=== PATIENT | female | born 1980 | race Hispanic/Latino ===

== ENCOUNTER 2018-05-18 18:42 | Emergency (ER) | payer OTHER ==
[~2018-05-18 18:42] MED LIST: ALBUTEROL0.09 MG/A1 INH; MEDROL DOSEPAK1 PAC PO; ROBITUSSIN W/CO10 ML PO; TESSALON PERLE100 MG PO
[2018-05-18 19:10] VITALS: BP 115/74
--- NOTE | 2018-05-18 21:10 | ED SKIN/ALLERGY COMPLAINT ---
History of Present Illness General Chief Complaint: General Adult Stated Complaint: RASH ON PALMS OF HANDS Source: patient Exam Limitations: no limitations Vital Signs & Intake/Output Vital Signs & Intake/Output Vital Signs Date Time Temp Pulse Resp B/P B/P Pulse O2 O2 Flow FiO2 Mean Ox Delivery Rate 05/18 2148 90 18 100 Room Air 05/18 2147 Room Air ED Intake and Output 05/19 0000 05/18 1200 Intake Total 0 Output Total Balance 0 Intake, Oral 0 Allergies Coded Allergies: NO KNOWN ALLERGIES (10/14/15) Reconcile Medications Albuterol Sulfate (Albuterol Sulfate Hfa) 0.09 MG/Actuation AIDEN 2 PUFF INH Q4- 6 PRN PRN SHORTNESS OF BREATH 90 MCG PER PUFF Benzonatate (Tessalon Perle) 100 MG SGL 1 TAB PO TID COUGH Emollient Combination No.73 (Eucerin Intensive Repair) 78 GM CREAM..G. 1 Actuation TD TID dryness Methylprednisolone. (Medrol) 1 PAC PAC 1 PAC PO AD INFLAMMATION Robitussin AC (Guaifenesin-Codeine Syrup) 10 ML UDC 5 ML PO Q6 COUGH Triage Note: PT TO TRIAGE WITH PEELING RASH TO PALMS AND FEET. PER PT HAD GASTRIC SLEEVE DONE JANUARY 13, DEVELOPED RASH 3 WEEKS LATER ON ARMS, WENT AWAY WITH STEROID CREAM BUT HAS NOW SPREAD TO PALMS AND FEET AND CREAM IS NOT HELPING. Triage Nurses Notes Reviewed? yes Onset: Gradual Duration: day(s): Timing: recent history Severity: moderate Location: hands, feet : No Patient currently breastfeeds: No HPI: 37-year-old female presents emergency department complaining of rash to palms and feet for the past several days. Patient states that she had a rash under her arms and on upper arms several months ago for which she was prescribed antifungal cream. Patient states that that rash went away. She developed this rash on her hands which seemed different however she began applying the cream and rash got worse, now she has peeling skin and very dry skin. Rash initially started as small itchy red papules. Patient denies fevers, chills, sick contact , bug bite. (Anaid BUITRAGO,Yuridia Yuan) Past History Travel History Traveled to [place] past 21 day No Medical History Any Pertinent Medical History? see below for history Neurological: NONE EENT: NONE Cardiovascular: NONE Respiratory: NONE Gastrointestinal: NONE Hepatic: NONE Renal: NONE Musculoskeletal: NONE Psychiatric: NONE Endocrine: NONE Blood Disorders: GASTRIC SLEEVE GALL BLADDER REMOVAL Surgical History Surgical History: non-contributory Psychosocial History What is your primary language Kosovan Tobacco Use: Current Not Daily Daily Tobacco Use Amount/Type: =< 4 Cigarettes daily ETOH Use: occasional use Family History Hx Contributory? No (Yuridia Delgado) Review of Systems Review of Systems Constitutional: Reports: no symptoms. EENTM: Reports: no symptoms. Respiratory: Reports: no symptoms. Cardiovascular: Reports: no symptoms. GI: Reports: no symptoms. Genitourinary: Reports: no symptoms. Musculoskeletal: Reports: no symptoms. Skin: Reports: see HPI. Neurological/Psychological: Reports: no symptoms. Hematologic/Endocrine: Reports: no symptoms. Immunologic/Allergic: Reports: no symptoms. All Other Systems: Reviewed and Negative (Yuridia Delgado) Physical Exam Physical Exam General Appearance: well developed/nourished, no apparent distress, alert, awake Head: atraumatic, normal appearance Eyes: Bilateral: normal appearance. Ears, Nose, Throat: hearing grossly normal Neck: normal inspection, supple, full range of motion Respiratory: no respiratory distress Back: normal inspection, normal range of motion Extremities: normal range of motion Neurologic/Psych: awake, alert, oriented x 3 Skin: dryness with peeling and cracked skin to bilateral palms and heels, no erythema or swelling, no bleeding (Yuridia Delgado) Progress Differential Diagnosis: abscess/cellulitis, allergic reaction, contact dermatitis, drug reaction, urticaria Plan of Care: Patient has very dry skin to palms and heels. Dryness may have been exacerbated by application of Clotrimazole-Butamethasone cream the patient has been applying. Does not appear fungal in nature, this cream would not likely alleviate her symptoms. Patient given prescription for pneumonia to begin applying to dry skin areas and was given referral to a log loader helper. She is in no acute distress, nontoxic appearing, vital signs are stable. She agrees with this plan. (Yuridia Delgado) Departure Departure Disposition: HOME OR SELF CARE Condition: Stable Clinical Impression Primary Impression: Rash Secondary Impressions: Dry skin Referrals: Unknown (PCP/Family) Additional Instructions: Apply cream as directed. At this cream does not work he may purchase "O'Sukhjinder's working hands" cream from [employer] to try. Follow up with the log loader helper. Return if if worsening symptoms or concerns. Please note that there might be incidental findings in your evaluation that are unrelated to the current emergency department visit. Please notify your primary care doctor about this emergency department visit in order to obtain and review all of the testing performed so that these incidental findings can be monitored as needed. If you had an x-ray performed, please understand that some fractures may not be seen on the initial set of x-rays. If your symptoms persist you might need a repeat set of x-rays to check for such a fracture. If you had a laceration evaluated, please understand that foreign bodies such as glass or wood may not be visible to the naked eye or on plain x-rays. If the wound becomes red, swollen, increasingly more painful or if there is any drainage from the wound, please have it reevaluated by a physician for the possibility of a retained foreign body. If you're unable to follow up as outlined in the discharge instructions please return to the emergency department. Thank you for choosing the [facility] Emergency Department for your care. It was a pleasure to serve you today. Departure Forms: Customer Survey General Discharge Information Prescriptions: Current Visit Scripts Emollient Combination No.73 (Eucerin Intensive Repair) 1 Actuation TD TID #1 BOT (Anaid BUITRAGO,Yuridia Yuan) PA/PRODUCTION STAFF WORKER Co-Sign Statement Statement: [x] I have reviewed the ED Record and agree with the PA's/PRODUCTION STAFF WORKER's documentation.ED Attending supervision documentation- [] I saw and evaluated the patient. I have also reviewed all the pertinent lab results and diagnostic results. I agree with the findings and the plan of care as documented in the PA's/PRODUCTION STAFF WORKER's documentation. [] I have reviewed the ED Record and agree with the PA's/PRODUCTION STAFF WORKER's documentation. [] Additions or exceptions (if any) to the PAs/PRODUCTION STAFF WORKER's note and plan are summarized below: [] (Maryann BEAL,Hernando Becker)
[2018-05-18] MEDS ORDERED: EUCERIN INTENSI TD (21:39)
== END 2018-05-18 21:50 ==
LOC: ERH 18:42
DX: R21 Rash and other nonspecific skin eruption (principal); R23.9 Unspecified skin changes